=== PATIENT | male | born 1935 | race Caucasian/White ===

== ENCOUNTER 2020-07-11 21:49 | Emergency (ER) | payer BC ==
[~2020-07-11] VITALS: Ht 175.3 cm; Wt 93.0 kg
[2020-07-11 22:09] VITALS: BP_SYST 129
--- NOTE | 2020-07-11 22:56 | NUR ---
Patient to ER bed 03 to gown for evaluation. Side rails up.
--- NOTE | 2020-07-11 23:00 | NUR ---
PT A&O X4 FROM HOME C/O OF CLOGGED OWEN CATHETER THAT WAS PLACED EARLIER TODAY BY DR. PALMA AFTER HAVING A SCRAPPING PROCEDURE DONE TO HIS BLADDER. PT HX OF BLADDER CANCER AND USUALLY GETS BLADDER SCRAPPED EVERY 3 MONTHS. PT HAS ABDOMINAL DISTENTION AND DISCOMFORT, AND HAS NOT HAD ANY URINE OUTPUT FOR ABOUT 5 HOURS. PT ATTEMPTED TO IRRIGATE OWEN AT HOME WITHOUT BEING SUCCESSFUL.
--- NOTE | 2020-07-11 23:40 | NUR ---
ER Dr. RAIN at bedside examining patient.
--- NOTE | 2020-07-11 23:47 | NUR ---
LAB AT BEDSIDE DRAWING LABS.
--- NOTE | 2020-07-12 00:12 | NUR ---
DR. RAIN SPEAKING WITH DR. SOSA (UROLOGY) ON THE PHONE TO DISCUSS PATIENT CARE.
[2020-07-12 00:29] LABS: BASOPHILS % (AUTO) 0.2 % (0.0-2.0); HEMATOCRIT 32.7 % (36-54); HEMOGLOBIN 11.1 g/dL (14.0-18.0); LYMPHOCYTES # (AUTO) 1.3 K/uL (1.0-5.5); LYMPHOCYTES % (AUTO) 13.2 % (20.5-51.5); MEAN CORPUSCULAR HEMOGLOBIN 34 pg (27-31); MEAN CORPUSCULAR HGB CONC 34 % (32-36); MEAN CORPUSCULAR VOLUME 102 fL (79.0-98.0); MONOCYTES # (AUTO) 0.3 K/uL (0.0-1.0); MONOCYTES % (AUTO) 3.6 % (1.7-9.3); PLATELET COUNT (AUTO) 192 K/uL (130-430); RED BLOOD CELL COUNT(AUTO) 3.22 MIL/uL (4.2-6.2); RED CELL DISTRIBUTION WIDTH 14.4 % (9.0-15.0); WHITE BLOOD COUNT (AUTO) 9.6 K/uL (4.8-10.8)
[2020-07-12 00:58] LABS: ANION GAP 14 (5-15); CALCIUM 9.9 mg/dL (8.4-11.0); CHLORIDE 99 mmol/L (98-107); GLUCOSE 222 mg/dL (70-99); POTASSIUM 4.6 mmol/L (3.5-5.1); SODIUM SERUM 135 mmol/L (136-145); UREA NITROGEN, BLOOD 27 mg/dL (8-21)
--- NOTE | 2020-07-12 01:25 | NUR ---
# 22 FR Neumann catheter with use of sterile technique. Immediate return of 250 cc blood tinged urine noted. Bedside drainage bag placed below level of bladder. Urine sample collected and sent to lab. Pt tolerated procedure well. Patient arrived with neumann in place, changed due to standard of practice prior to admission. Patient unable to toilet self.
[2020-07-12 01:40] VITALS: BP_SYST 126
--- NOTE | 2020-07-12 01:40 | NUR ---
Patient given written and verbal discharge instructions and verbalizes understanding. ER MD discussed with patient the results and treatment provided. Patient in stable condition. ID arm band removed. No Rx given. Patient educated on pain management and to follow up with PMD. Pain Scale 2/10. Opportunity for questions provided and answered. Medication side effect fact sheet provided.
== END 2020-07-12 01:40 | disposition home or self-care (01) ==
LOC: SED 21:49
DX: R10.30 Lower abdominal pain, unspecified (principal); Z88.1 Allergy status to other antibiotic agents
CPT/HCPCS: 36415; 80048; 85025; 99284